=== PATIENT | female | born 1950 | race Caucasian/White ===

== ENCOUNTER → 2017-05-20 | Outpatient (CLI) | payer MEDICARE, OTHER ==
[~2017-05-20] MED LIST: ASPI81 PO; CALCTAB98 PO; GLUC500C56 PO; LORT5TAB PO; SENN1TAB11 PO; TAB-TAB PO; VITA400C70 PO; WELC625T2 PO
[2017-05-20 09:41] LABS: ALT (GPT) 25 U/L (10-53); AST (GOT) 16 U/L (15-37)
[2017-05-20 09:46] LABS: ALKALINE PHOSPHATASE 60 U/L (45-117); HDL CHOLESTEROL 59.6 MG/DL (40.0-60.0); INDIRECT BILIRUBIN 0.3 MG/DL (0.0-0.8); LDL CHOLESTEROL 156 MG/DL (0-99); TOTAL BILIRUBIN ADULT 0.4 MG/DL (0.2-1.0)
[2017-05-20 18:22] LABS: HEMOGLOBIN A1a 1.1 %; HEMOGLOBIN Ao 84.4 %; HEMOGLOBIN F 1.2 %
== END ==
LOC: PLAB 07:03
PROVIDERS: ATTEND Family Medicine
DX: E78.2 Mixed hyperlipidemia (principal); I25.10 Atherosclerotic heart disease of native coronary artery without angina pectoris; E11.9 Type 2 diabetes mellitus without complications
CPT/HCPCS: 36415; 80061; 80076; 83036

== ENCOUNTER → 2017-06-09 | Outpatient (CLI) | payer MEDICARE, OTHER | LOC: PLAB 08:30 | PROVIDERS: ATTEND Family Medicine | DX: R63.5 Abnormal weight gain (principal); L65.9 Nonscarring hair loss, unspecified | CPT/HCPCS: 36415; 84443 ==